=== PATIENT | female | born 1970 | race Two or more races ===

== ENCOUNTER 2016-10-19 19:43 | Emergency (ER) | payer OTHER ==
[2016-10-19 19:00] LABS: BASO % 0.2 % (0-2); EOS % 3.4 % (0-7); EOSINOPHIL ABSOLUTE COUNT 0.2 tho/cmm (0.0-0.7); HCT-HEMATOCRIT 45.9 % (34.0-49.0); IMMATURE GRANULOCYTES ABSOLUTE 0.02 tho/cmm (0-0.03); IMMATURE GRANULOCYTES PERCENT 0.3 % (0-0.3); LYMPH % 48.2 % (20-45); LYMPH ABSOLUTE COUNT 2.8 tho/cmm (0.8-4.5); MCH (MEAN CORPUSCULAR HGB) 31.3 pg (28.0-32.0); MCHC MEAN CORPUSCULAR HGB CONC 34.9 % (32.0-36.0); MCV (MEAN CELL VOLUME) 89.6 fl (82.0-96.0); MEAN PLATELET VOLUME 9.4 cmc (9.4-12.4); MONO % 6.9 % (0-12); MONOCYTE ABSOLUTE COUNT 0.4 tho/cmm (0.0-1.2); NEUTROPHIL ABSOLUTE COUNT 2.4 tho/cmm (1.6-8.0); NEUTROPHIL-AUTOMATED 2.4 tho/cmm (1.6-8.0); PLATELET COUNT 338 tho/cmm (150-450); RED BLOOD COUNT 5.12 mil/cmm (4.00-5.20); WHITE BLOOD COUNT 5.8 tho/cmm (4.0-10.0)
[2016-10-19 19:15] LABS: ALB/GLOB RATIO 1.1 (0.8-2.0); ALBUMIN 3.9 g/dl (3.5-5.0); ALKALINE PHOSPHATASE 86 U/L (33-138); ALT/SGPT 17 U/L (12-78); ANION GAP 13 mmol/L (0-20); AST/SGOT 20 U/L (10-40); BILIRUBIN,TOTAL 0.5 mg/dl (0-1.5); BLOOD UREA NITROGEN 13 mg/dl (6-24); CALCIUM 8.7 mg/dl (8.5-10.5); CARBON DIOXIDE-VENOUS 25 mmol/L (22-32); CHLORIDE 107 mmol/l (96-110); CREATININE 0.96 mg/dl (0.50-1.10); GLUCOSE 88 mg/dL (70-110); POTASSIUM 3.8 mmol/L (3.7-5.1); SODIUM 141 mmol/L (135-145); eGFR VALUE FOR BLACK 83 mL/Min
[~2016-10-19 19:43] MED LIST: ALBUTEROL2.5 MG/3 M INH; ATORVASTATIN CA20 M1 PO; BISMUTH PO; CIPRO500 M2 PO; FLAGYL500 MG PO; IBUPROFEN800 M1 PO; LATUDA40 M1 PO; LEXAPRO10 M2 PO; NICOTINE PATCH1 EAC1 TP; NO HOME MEDS; NORCO 5-325 TA1 EACH PO; OMEPRAZOLE20 M3 PO; OXYCODONE/APAP PO; PERIOGARD473 ML MM; PREDNISONE20 M1 PO; PRILOSEC20 MG PO; PYRIDIUM200 M2 PO; SPIRIVA18 MC1 IH; SYMBICORT 160-1 PUFF INH; TETRACYCLINE H500 MG PO; TUMS300 M1 PO; VENTOLIN HFA18 G2 INH; XANAX0.5 M1 PO; ZITHROMAX250 M1 PO; ZYRTEC10 M7 PO; [UNRECOGNIZED DRUG - OTHER] PO
== END 2016-10-19 19:46 ==
LOC: EDMED 19:43
PROVIDERS: Family Medicine
DX: M94.0 Chondrocostal junction syndrome [Tietze] (principal); F41.9 Anxiety disorder, unspecified; Z79.899 Other long term (current) drug therapy; F17.200 Nicotine dependence, unspecified, uncomplicated
CPT/HCPCS: J2060